=== PATIENT | male | born 1995 | race Caucasian/White ===

== ENCOUNTER → 2023-07-06 | Outpatient (CLI) | payer OTHER | LOC: MHCPAIN 13:32 | DX: M47.817 Spondylosis without myelopathy or radiculopathy, lumbosacral region (principal) | CPT/HCPCS: J1100; Q9967 ==

== ENCOUNTER → 2023-07-19 | Outpatient (CLI) | payer OTHER | LOC: MHCPAIN 14:24 | DX: M54.17 Radiculopathy, lumbosacral region (principal) | CPT/HCPCS: G0463 ==